=== PATIENT | male | born 1950 | race Caucasian/White ===

== ENCOUNTER 2020-11-14 14:39 | Emergency (ER) | payer OTHER ==
[2020-11-14] MEDS ORDERED: MEDROL 4MG DOSEP4 MG PO (16:08)
[2020-11-14] MEDS ORDERED: CYCLOBENZAPRINE10 MG PO (16:08)
== END 2020-11-14 16:24 | disposition home or self-care (01) ==
LOC: FER 14:39
DX: S13.4XXA Sprain of ligaments of cervical spine, initial encounter (principal); V49.00XA Driver injured in collision with unspecified motor vehicles in nontraffic accident, initial encounter; Y92.410 Unspecified street and highway as the place of occurrence of the external cause
CPT/HCPCS: 70450; 72125